=== PATIENT | female | born 1970 | race African-American/Black ===

== ENCOUNTER 2020-04-29 08:54 | Emergency (ER) | payer MEDICAID ==
[~2020-04-29] VITALS: Ht 160 cm; Wt 84.0 kg
[~2020-04-29 08:54] MED LIST: FAMO20TA8 PO; IBUP-2030 PO; OXYC-103 PO
[2020-04-29] MEDS ORDERED: TETRACAINE 0.5% OPHTH DROPS 4ML RIGHTEYE ONE (09:30)
[2020-04-29] MEDS ORDERED: IBUPROFEN 600MG TABLET PO STA (09:34)
[2020-04-29 11:08] VITALS: BP 143/92
== END 2020-04-29 11:10 | disposition home or self-care (01) ==
LOC: ER 09:07
DX: H10.9 Unspecified conjunctivitis (principal); D57.1 Sickle-cell disease without crisis
CPT/HCPCS: 99283

== ENCOUNTER 2023-02-25 15:20 | Emergency (ER) | payer MEDICAID ==
[~2023-02-25] VITALS: Ht 160 cm; Wt 84.0 kg
[2023-02-25 16:01] LABS: BASOPHILS % 0.8 % (0.0-2.0); EOSINOPHILS % 1.4 % (0.0-5.0); HEMATOCRIT. 30.8 % (36.0-48.0); HEMOGLOBIN. 10.9 g/dL (12.0-16.0); LYMPHOCYTES % 39.9 % (20.0-50.0); MEAN CORPUSCULAR HEMOGLOBIN 30.7 pg (28.0-32.0); MEAN PLATELET VOLUME 9.4 fl (7.4-10.4); MONOCYTES % 6.6 % (2.0-8.0); NEUTROPHILS % 51.3 % (40.0-76.0); PLATELET 123 x1000/uL (130-400); RED BLOOD CELL COUNT 3.54 mill/uL (4.2-5.4); RED CELL DISTRIBUTION WIDTH 20.1 % (11.6-14.6)
[2023-02-25 16:06] LABS: CHLORIDE 111 mEq/L (98-107)
[2023-02-25 18:09] LABS: CLARITY URINE CLEAR (CLEAR); COLOR URINE YELLOW (YELLOW); KETONES URINE NEGATIVE (NEGATIVE); LEUKOCYTE ESTERASE URINE NEGATIVE (NEGATIVE); NITRITE URINE NEGATIVE (NEGATIVE); OCCULT BLOOD URINE NEGATIVE (NEGATIVE); PROTEIN URINE NEGATIVE (NEGATIVE); UROBILINOGEN URINE 0.2 E.U./dL (0.2-1.0)
[2023-02-25] MEDS ORDERED: ONDANSETRON HCL 4MG/2ML INJ IV ONE (18:15)
[2023-02-25] MEDS ORDERED: SODIUM CHLORIDE 0.9% 1,000 ML IV ONE (18:15)
[2023-02-25] MEDS ORDERED: MORPHINE SULFATE 4 MG/ML CPJ (NOT FOR IM USE) IV ONE (18:15)
[2023-02-25 21:00] VITALS: BP 152/83
== END 2023-02-25 21:29 | disposition home or self-care (01) ==
LOC: ER 15:20
DX: D57.1 Sickle-cell disease without crisis (principal); Z90.49 Acquired absence of other specified parts of digestive tract; Z98.890 Other specified postprocedural states
CPT/HCPCS: 36415; 71045; 80053; 81003; 84484; 85025; 85044; 93005; 96361; 96374; 96375; 99285; J2270; J2405; J7030